=== PATIENT | female | born 1995 | race Hispanic/Latino ===

== ENCOUNTER 2018-12-30 13:18 | Emergency (ER) | payer OTHER ==
[~2018-12-30] VITALS: Ht 157.5 cm; Wt 85.5 kg
[2018-12-30] MEDS ORDERED: Xyzal (13:26)
[2018-12-30] MEDS ORDERED: PRENTAB55 PO (13:26)
[2018-12-30 13:56] LABS: BASO % 0.2 % (0.0-1.0); EOS # 0.6 10^3/uL (0.0-0.50); EOS % 6.3 % (0.0-3.0); HEMATOCRIT 37.8 % (36.0-47.0); HEMOGLOBIN 12.7 g/dl (12.0-15.5); LYMPH # 2.3 10^3/uL (1.5-6.5); MEAN CORPUSCULAR HEMOGLOBIN 29.5 pg (27.0-33.0); MEAN CORPUSCULAR HGB CONC 33.6 g/dl (32.0-36.5); MEAN CORPUSCULAR VOLUME 87.9 fl (80.0-96.0); MONO # 0.6 10^3/uL (0.0-0.8); MONO % 6.1 % (0.0-5.0); NEUTROPHILS # 6.4 10^3/uL (1.8-7.7); NEUTROPHILS % 64.2 % (36.0-66.0); PLATELET COUNT, AUTOMATED 189 10^3/uL (150-450); WHITE BLOOD COUNT 9.9 10^3/uL (4.0-10.0)
--- NOTE | 2018-12-30 15:42 | REP ---
First trimester obstetric ultrasound for vaginal bleeding, stat request: The studies performed transabdominal, endovaginal and Doppler ultrasound assessment. There is an intrauterine gestational sac with a pole. The heart rate is 162 beats per minute. The pole crown-rump length is 4.3 cm. This corresponds to 11 weeks 1 day gestational age. The ALFRED is 07/20/2019. Gestational by LMP is 11 weeks 4 days/ALFRED 07/20/2019. There is a subchorionic hematoma in the lower uterine segment measuring 5.2 x 1.6 x 5.1 cm. The the there is a right ovarian cyst measuring up to 2.29 cm, likely a corpus luteum. Left ovary is unremarkable. There is vascular flow in both ovaries with the Doppler resistive index of the parenchymal arteries of the right ovary 0.47 and left ovary 0.53. There is no free fluid in the pelvis. Impression: 55-zust-9-day viable intrauterine gestation. Subchorionic hematoma as described. Right ovarian 2.2 cm cyst, likely a corpus luteum. Electronically Signed by Kristian Justin MD 12/30/2018 03:33 P
[2018-12-30 16:35] VITALS: BP 102/52
== END 2018-12-30 16:39 | disposition home or self-care (01) ==
LOC: M ED 13:18
DX: O20.8 Other hemorrhage in early pregnancy (principal); O99.511 Diseases of the respiratory system complicating pregnancy, first trimester; J45.909 Unspecified asthma, uncomplicated; Z87.891 Personal history of nicotine dependence; Z3A.11 11 weeks gestation of pregnancy

== ENCOUNTER → 2019-05-17 | Outpatient (CLI) | payer OTHER ==
[~2019-05-17] MED LIST: ACET-683 PO; IBUP80TA PO; OXYC1TAB23 PO; PRENTAB55 PO; Xyzal
[2019-05-20 11:46] LABS: HEPATITIS C VIRUS ABY INDEX 0.1 INDEX (<0.8); HIV 1&2 SCREEN CENTAUR NEGATIVE (NEGATIVE)
== END ==
LOC: M SMT 14:36
PROVIDERS: ATTEND Advanced Practice Midwife
DX: Z34.83 Encounter for supervision of other normal pregnancy, third trimester (principal); Z3A.00 Weeks of gestation of pregnancy not specified

== ENCOUNTER → 2019-05-23 | Outpatient (CLI) | payer OTHER ==
[~2019-05-23] MED LIST changes: -ACET-683 PO; -IBUP80TA PO; -OXYC1TAB23 PO
--- NOTE | 2019-05-23 10:27 | REP ---
Obstetric ultrasound for anatomy: There is a single intrauterine gestation in a vertex presentation. There is movement and cardiac activity. The heart rate is 100 35 beats per minute. The placenta is posterior. There is no previa or abruptio. The placenta is grade 1. The amniotic fluid volume subjectively is normal. The amniotic fluid index is 16.4 versus 8.7 - 24.1). The cervix measures 3.5 cm. Gestational age by today's ultrasound is 31 weeks 3 days/ALFRED 07/22/2019. Gestational age by the first ultrasound is 31 weeks 5 days/ALFRED 07/20/2019. Gestational age by LMP is 31 weeks 5 days/ALFRED 07/20/2019. weight is 1783 grams/3 pounds, 14 ounces. This is the 39th percentile for 31 weeks 5 days. The following anatomic structures are identified and are unremarkable: Cranium, choroid plexus, cavum septum pellucidum, cerebellum, lungs, four-chamber heart, cardiac left ventricular outflow tract, diaphragm, stomach, cord insertion, three-vessel cord, kidneys, bladder and spine. Suboptimally demonstrated because of position and gestational age of the facial features, right ventricular outflow tract and upper lower extremities. Umbilical artery Doppler assessment: S/D ratio the the 2.82 (2.30-3.30) Resistive Index 0.65 (0.59-0.75 Diastolic Velocity 17.5 (>10 cm/sec) Electronically Signed by Kristian Justin MD 05/23/2019 10:18 A
== END ==
LOC: M RAD 08:15
PROVIDERS: ATTEND Advanced Practice Midwife
DX: Z34.80 Encounter for supervision of other normal pregnancy, unspecified trimester (principal)

== ENCOUNTER → 2019-06-06 | Outpatient (CLI) | payer OTHER ==
--- NOTE | 2019-06-06 11:20 | REP ---
Clinical: Anatomical evaluation. Comparison: 05/23/2019 . Findings: Examination demonstrates a single live intrauterine in cephalic presentation. motion is identified by technologist. Placenta is noted posterior and grade II without evidence for placenta previa or abruption. Amniotic fluid volume is normal. Cervix measures 4.2 cm in length and appears closed. Nuchal cord cannot be excluded. Gestational age by LMP 33 weeks 5 days with ALFRED 07/20/2019 . Gestational age by current measurements 33 weeks 5-day with ALFRED 07/20/2019 . FHR equals 128 beats per minute. Estimated weight 2278 grams ( 47th percentile). Amniotic fluid index: 17.5 cm (8.2-24.7) Anatomical assessment demonstrates normal structures including cranium, choroid plexus, cavum, cerebellum/posterior fossa, lungs, four-chamber heart/ventricular outflow tracts, diaphragm, stomach, cord insertion/three-vessel cord, kidneys/bladder, and spine. Limited evaluation of the facial features and extremities again noted. Impression: 1. Single live intrauterine in cephalic presentation demonstrating appropriate interval growth. 2. Nuchal cord cannot be excluded. 3. Continued limited evaluation of the facial features and extremities. Remainder of the anatomical assessment is complete and normal. Electronically Signed by Khanh Vasques MD 06/06/2019 11:12 A
== END ==
LOC: M RAD 10:01
PROVIDERS: ATTEND Advanced Practice Midwife
DX: Z34.03 Encounter for supervision of normal first pregnancy, third trimester (principal)

== ENCOUNTER → 2019-06-11 | Outpatient (REF) | payer OTHER | LOC: M LAB REF 12:41 | PROVIDERS: ATTEND Advanced Practice Midwife | DX: Z34.03 Encounter for supervision of normal first pregnancy, third trimester (principal) ==

== ENCOUNTER 2019-06-15 09:23 | Outpatient (CLI) | payer OTHER ==
[~2019-06-15] VITALS: Ht 157.5 cm; Wt 93.6 kg
[2019-06-15 09:53] VITALS: BP 118/63
== END 2019-06-15 11:55 | disposition home or self-care (01) ==
LOC: M LDO 09:23
PROVIDERS: ATTEND Obstetrics & Gynecology
DX: O26.893 Other specified pregnancy related conditions, third trimester (principal); R10.30 Lower abdominal pain, unspecified; Z3A.36 36 weeks gestation of pregnancy
CPT/HCPCS: G0378; G0463

== ENCOUNTER → 2019-06-28 | Outpatient (REF) | payer OTHER | LOC: M LAB REF 16:57 | PROVIDERS: ATTEND Advanced Practice Midwife | DX: Z34.83 Encounter for supervision of other normal pregnancy, third trimester (principal) ==

== ENCOUNTER → 2019-07-03 | Outpatient (CLI) | payer OTHER | LOC: M SMT 10:50 | PROVIDERS: ATTEND Advanced Practice Midwife | DX: Z34.83 Encounter for supervision of other normal pregnancy, third trimester (principal); Z3A.00 Weeks of gestation of pregnancy not specified ==

== ENCOUNTER 2019-07-24 18:10 | Inpatient (IN) | payer OTHER ==
[~2019-07-24] VITALS: Ht 157.5 cm; Wt 95.9 kg
[2019-07-24 18:38] VITALS: BP 123/74
--- NOTE | 2019-07-24 19:03 | HPE ---
DATE OF ADMISSION: 07/24/2019 Anitha is 23-year-old 1, para 0 at 48-4/7 weeks gestation, estimated date of confinement (EDC) of 07/20/2019 based on first-trimester ultrasound. She presents to labor and delivery today for induction of labor due to post-term . She does report an occasional contraction. Denies vaginal bleeding and leakage of fluid. The fetus has been active. Her care was initiated in [place], [place] in the first trimester with a transfer of care to [facility] at 28 weeks gestation. Her course complicated by anti-M antibody, which causes rarely hemolytic anemia of the fetus, and the antibody was not detected at 37 degrees centigrade and is not considered clinically significant; therefore, no titer was indicated. She does reports that she has a long-term history of getting severe hives with stress and an increased heat. OBSTETRICAL HISTORY: Primigravida. OBSTETRIC LABORATORIES: A positive, antibody positive for anti-M, ASCUS Pap, HPV positive, varicella immune, rubella nonimmune, VDRL nonreactive. Hepatitis B surface antigen negative, HIV negative, hepatitis C antibody nonreactive. Gonorrhea and chlamydia negative. Cystic fibrosis carrier screening negative. Quad screen negative. Gestational diabetic screening normal at 125, and her GBS is negative. PAST MEDICAL HISTORY: Asthma. SURGERIES: Tonsillectomy. FAMILY HISTORY: Diabetes, hypertension, heart disease, and asthma. SOCIAL HISTORY: The patient is . Her is at bedside and supportive. She is a nonsmoker. Denies alcohol and drug use. No history of sexually transmitted infections and denies history of abuse, physical, sexual, and emotional. ALLERGIES: No known drug allergies. CURRENT MEDICATIONS: vitamins and Zyrtec. OBJECTIVE: Temperature 96, pulse 103, blood pressure (BP) is 123/74. heart rate is 135 with moderate variability, positive accelerations. No decelerations. Occasional contraction noted. Sterile vaginal exam: 2-3 cm dilated, 75% effaced, -3 station, posterior, soft. No show with the exam. Abdomen is gravid, cephalic presentation. Estimated weight 8 pounds. ASSESSMENT: Intrauterine at 40-4/7 weeks. heart rate category 1. PLAN: Admit the patient to labor and delivery. Routine labs. Out of bed ad marisa. Regular diet at this time. Saline lock. Misoprostol 50 mcg by mouth every 4 hours for cervical ripening. Likely will start intravenous (IV) Pitocin later for labor induction. The patient does request an epidural when she is uncomfortable in her labor. I did review risks, benefits, and alternatives. The patient and her 's questions have been answered. She has been verbally consented for emergency surgery and blood products if necessary. I do anticipate cervical ripening.
[2019-07-24 19:07] LABS: HEMOGLOBIN 13.1 g/dl (12.0-15.5); MEAN CORPUSCULAR HEMOGLOBIN 29.5 pg (27.0-33.0); MEAN CORPUSCULAR HGB CONC 33.6 g/dl (32.0-36.5); MEAN CORPUSCULAR VOLUME 87.8 fl (80.0-96.0); PLATELET COUNT, AUTOMATED 169 10^3/uL (150-450); RED BLOOD COUNT 4.44 10^6/uL (4.00-5.40); WHITE BLOOD COUNT 12.4 10^3/uL (4.0-10.0)
[2019-07-24 19:34] VITALS: BP 118/63
[2019-07-24] MEDS: miSOPROStol 50 MCG 1/2 TAB (S0191) PO SCH (19:36)
[2019-07-24 22:35] VITALS: BP 134/80
[2019-07-25] VITALS (50 sets, daily range): BP systolic 81–148; BP diastolic 40–110
[2019-07-25] MEDS: miSOPROStol 50 MCG 1/2 TAB (S0191) PO SCH ×2 (00:11→04:18)
[2019-07-25] MEDS ORDERED: OXYTOCIN 30 UNITS IN 0.9% NaCl 500ML IV BAG (J2590) As Ordered ONE (08:19)
[2019-07-25] MEDS: LR 1,000 ML IV SCH ×3 (08:43→17:56)
[2019-07-25] MEDS ORDERED: OXYTOCIN DRIP 30 UNITS in APPROPRIATE DILUENT 1 EA IV SCH ×2 (08:45→23:38)
[2019-07-25] MEDS ORDERED: FENTANYL 2MCG/ML ROPIVACAINE 0.2% IN 0.9% NACL 100ML IVBAG As Ordered ONE (13:46)
[2019-07-25] MEDS ORDERED: EPIDURAL COMMENT XX SCH (15:00)
[2019-07-25] MEDS ORDERED: LACTATED RINGER'S 1000 ML IV PRN (15:00)
[2019-07-25] MEDS ORDERED: diphenhydrAMINE INJ 50MG/ML VIAL (J1200) IV PRN ×2 (15:00→23:30)
[2019-07-25] MEDS ORDERED: ePHEDrine SULFATE 25 MG/5 ML(5MG/ML) SYRINGE IV PRN (15:00)
[2019-07-25] MEDS ORDERED: REFRIGERATOR IV KEYS XX PRN (15:00)
[2019-07-25] MEDS ORDERED: ONDANSETRON 4MG/2ML VIAL (J2405) IV PRN ×3 (15:00→23:45)
[2019-07-25] MEDS ORDERED: NALOXONE INJ 0.4 MG/1 ML VIAL (J2310) IV PRN ×3 (15:00→23:30)
[2019-07-25] MEDS ORDERED: FENTANYL/ROPIVACAINE/NACL BAG 100 ML EPIDURAL SCH (15:00)
[2019-07-25] MEDS ORDERED: EPIDURAL/PCA KEYS XX PRN (15:00)
[2019-07-25] MEDS ORDERED: AZITHROMYCIN INJ 500 MG, VIAL MATE ADAPTER 1 EACH in D5W 250 ML IV ONE (22:15)
[2019-07-25] MEDS ORDERED: BICITRA 30ML SOLN UDC PO ONE (22:15)
[2019-07-25] MEDS ORDERED: OXYTOCIN INJ 10 UNITS/ML VIAL (J2590) As Ordered ONE (22:16)
[2019-07-25] MEDS ORDERED: LIDOCAINE 2% W/EPIN INJ 20ML **PRES FREE As Ordered ONE (22:16)
[2019-07-25] MEDS ORDERED: ePHEDrine SULFATE 25 MG/5 ML(5MG/ML) SYRINGE As Ordered ONE (22:40)
[2019-07-25] MEDS ORDERED: METOCLOPRAMIDE INJ 10MG/2ML VIAL (J2765) As Ordered ONE (22:44)
[2019-07-25] MEDS ORDERED: ONDANSETRON 4MG/2ML VIAL (J2405) As Ordered ONE (22:58)
[2019-07-25] MEDS ORDERED: KETOROLAC 60 MG/2 ML VIAL (J1885) As Ordered ONE (22:58)
[2019-07-25] MEDS ORDERED: MORPHINE PRES-FREE INJ 10 MG/10 ML VIAL (J2274) As Ordered ONE (22:59)
[2019-07-25] MEDS ORDERED: PHENYLephrine HCL 500 MCG/5 ML (100MCG/ML) SYRINGE (J2370) As Ordered ONE (23:05)
[2019-07-25 23:07] LABS: CORD GAS ABE A -1.2; CORD GAS HCO3 A 25.5 MEQ/L; CORD GAS O2 SAT A 38.4 %; CORD GAS PH A 7.325 UNITS; CORD GAS PO2 A 20.9 mmHg
[2019-07-25 23:10] LABS: CORD GAS ABE V -0.4; CORD GAS HCO3 V 25.1 MEQ/L; CORD GAS O2 SAT V 64.9 %; CORD GAS PCO2 V 44.6 mmHg; CORD GAS PH V 7.369 UNITS; CORD GAS SBC V 23.3 MEQ/L; CORD GAS TCO2 V 26.5 MEQ/L
[2019-07-25] MEDS ORDERED: METOCLOPRAMIDE INJ 10MG/2ML VIAL (J2765) IV PRN (23:30)
[2019-07-25] MEDS ORDERED: NALBUPHINE HCL 10 MG/ML AMP (J2300) IV PRN (23:30)
[2019-07-25] MEDS ORDERED: MEASLES,MUMPS,RUBELLA VACCINE INJ (MMR-II) (90707) SC SCH (23:45)
[2019-07-25] MEDS ORDERED: ACETAMINOPHEN 500 MG TAB PO PRN (23:45)
[2019-07-25] MEDS ORDERED: ACETAMINOPHEN TAB 650MG DOSE (2X325MG) PO PRN (23:45)
[2019-07-25] MEDS ORDERED: RHOGAM 300 MCG (1500 IU) INJ (J2790) IM SCH (23:45)
[2019-07-25] MEDS ORDERED: PERCOCET 5MG/325MG TAB PO PRN ×2 (23:45)
[2019-07-25] MEDS ORDERED: MOM 30ML SUSPENSION UDC PO PRN (23:45)
[2019-07-26] VITALS (8 sets, daily range): BP systolic 101–120; BP diastolic 55–67
[2019-07-26] MEDS ORDERED: fentaNYL 100 MCG/2 ML INJECTION (J3010) IV PRN
[2019-07-26] MEDS ORDERED: MEPERIDINE INJ 25 MG/ML VIAL (J2175) IV PRN
[2019-07-26] MEDS ORDERED: HYDROMORPHONE HCL 0.5 MG/ 0.5 ML SYRINGE (J1170 PER 1) IV PRN
[2019-07-26] MEDS ORDERED: PERCOCET 5MG/325MG TAB PO PRN
[2019-07-26] MEDS ORDERED: ONDANSETRON 4MG/2ML VIAL (J2405) IV PRN
[2019-07-26] MEDS ORDERED: diphenhydrAMINE INJ 50MG/ML VIAL (J1200) IV PRN
[2019-07-26] MEDS ORDERED: NALBUPHINE HCL 10 MG/ML AMP (J2300) IV PRN
[2019-07-26] MEDS ORDERED: fentaNYL 100 MCG/2 ML INJECTION (J3010) As Ordered ONE (00:40)
[2019-07-26] MEDS: LR 1,000 ML IV SCH ×4 (02:39→15:38)
[2019-07-26] MEDS: KETOROLAC 30 MG/ML VIAL (J1885) IV SCH ×3 (05:36→17:29)
[2019-07-26 06:50] LABS: HEMATOCRIT 31.6 % (36.0-47.0); MEAN CORPUSCULAR HEMOGLOBIN 30.1 pg (27.0-33.0); MEAN CORPUSCULAR HGB CONC 33.9 g/dl (32.0-36.5); PLATELET COUNT, AUTOMATED 126 10^3/uL (150-450); RED BLOOD COUNT 3.55 10^6/uL (4.00-5.40); WHITE BLOOD COUNT 16.2 10^3/uL (4.0-10.0)
[2019-07-26 06:55] LABS: HEMOGLOBIN 10.7 g/dl (12.0-15.5)
--- NOTE | 2019-07-26 08:20 | RO ---
DATE OF PROCEDURE: 07/25/2019 PREOPERATIVE DIAGNOSIS: Arrest of dilation. POSTOPERATIVE DIAGNOSES: Arrest of dilation. PROCEDURE PERFORMED: Primary lower transverse section. SURGEON: Zandra Nava MD OPHTHALMIC AIDE: Rosie Carolina DO ANESTHESIA: Epidural. ESTIMATED BLOOD LOSS : 550 mL. IV FLUIDS: 1100 mL of lactated Ringer's solution. URINE OUTPUT: 200 mL. PREOPERATIVE ANTIBIOTICS: 2 grams of Ancef, 500 mg of azithromycin. SPECIMENS: Cord gases, which were 7.3, 27.36, base excesses -1.2. OPERATIVE FINDINGS: Live born male , scores 9 and 9, weight was 7 pounds 14 ounces, 3580 grams. DESCRIPTION OF OPERATION: After informed consent was obtained and written consent was reviewed, the patient brought to the operating room where she was prepped and draped in a normal sterile fashion. She had a Gonzalez catheter previously placed and it was set to gravity. A time out in the operating room was then performed identifying the patient, procedure to be performed, as well as drug allergies. Anesthesia was tested and deemed to be adequate. A Pfannenstiel skin incision was then made and this was carried down to the underlying rectus fascia. Fascia was scored and this was extended bilaterally. The fascia was then dissected off the lying rectus muscles both superiorly and inferiorly. The rectus muscles were in the midline. Peritoneum was then entered. The vesicouterine peritoneum was then tented and excised to create a bladder flap. Bladder blade was then placed retracting back the bladder. Curvilinear incision was then made in the lower uterine segment. This incision was extended bilaterally. The head was then brought to the level of the incision atraumatically and delivered along with shoulders and corpus. Cord was clamped times two and was cut and the infant was taken over to the warmer with good cry. Placenta was then delivered grossly intact after obtaining cord gases. The uterus was then exteriorized, cleared of all clots and debris. Uterine incision was then closed in two-layers using 0 Vicryl, first in a running locking fashion followed by a second layer for imbrication in a running nonlocking fashion. The abdomen was then suctioned. The uterus was returned to the patient's abdomen, was reinspected and noted to be hemostatic. The anterior peritoneum was then reapproximated with 3-0 Vicryl. Rectus muscles were reapproximated with 3-0 Vicryl. The fascia was then closed with 0 Vicryl in a running nonlocking fashion. Subcutaneous tissue was then irrigated and suctioned. Subcutaneous tissues were reapproximated with 3-0 Vicryl. Several subdermal stitches were placed 3-0 Vicryl and the skin was closed with 4-0 Monocryl in a subcuticular fashion. Incision was then cleaned and dried and was dressed. The patient was then taken to recovery in stable condition. Counts were correct. Dr. Carolina, my surgical instrument mechanic, played an essential role to the surgery. She assisted with tissue identification, retraction delivery of the , as well as wound closure. The couple has decided to name their son Maynor Peralta.
[2019-07-26 09:12] LABS: HEPATITIS C VIRUS ABY INDEX 0.1 INDEX (<0.8); HIV 1&2 SCREEN CENTAUR NEGATIVE (NEGATIVE)
[2019-07-26] MEDS: PRENATAL VITAMINS CHEWABLE TABLET PO SCH (09:40)
[2019-07-26] MEDS: DOCUSATE SODIUM 100 MG CAP PO SCH ×2 (09:40→21:13)
--- NOTE | 2019-07-26 11:27 | IPNPDOC ---
Text Note Date of Service The patient was seen on 07/26/19. NOTE Postop Day 1 S/p pLTCS secondary to arrest of dilation; uncomplicated S: pain well controlled, lochia and bleeding decreasing, voiding spontaneously, ambulating without assistance, tolerating regular diet. Breast feeding. O: vitals stable Heart: RRR, no murmurs Lungs: CTA BL Abd: Fundus firm at U, dressing dry and intact Ext: no edema, nontender, negative Akilah's sign bilaterally A/P: 23 yo G1 now P1. Postop day 1 s/p pLTCS. Hemodynamically stable, afebrile, good pain control. Recovering well. -Routine postoperative care and advancement. -Anticipate discharge tomorrow VS,Serafinbone, I+O VS, Fishbone, I+O Laboratory Tests 07/26/19 06:29 Red Blood Count 3.55 L, Mean Corpuscular Volume 89.0, Mean Corpuscular Hemoglobi n 30.1, Mean Corpuscular Hemoglobin Concent 33.9, Red Cell Distribution Width 13.3 Vital Signs Date Time Temp Pulse Resp B/P (MAP) Pulse Ox O2 Delivery O2 Flow Rate FiO2 07/26/19 09:59 98.3 72 16 113/57 (70) 93 I&O- Last 24 Hours up to 6 AM 07/26/19 06:00 Intake Total 4240 ml Output Total 5500 ml Balance -1260 ml GME ATTESTATION GME ATTESTATION My faculty preceptor for this patient encounter was physically present during the encounter and was fully available. All aspects of the patient interview, examination, medical decision making process, and medical care plan development were reviewed and approved by the faculty preceptor. The faculty preceptor is aware and concurs with the plan as stated in the body of this note and will attest to such by his/her cosignature. PRABHU AUGUSTIN DO Jul 26, 2019 11:27
[2019-07-27] MEDS: IBUPROFEN 800 MG TAB PO SCH ×2 (01:45→09:07)
[2019-07-27 02:00] VITALS: BP 109/61
[2019-07-27 06:00] VITALS: BP 125/67
--- NOTE | 2019-07-27 06:25 | IPNPDOC ---
Text Note Date of Service The patient was seen on 07/27/19. NOTE Postop Day 2 S/p pLTCS secondary to arrest of dilation; uncomplicated S: pain well controlled, lochia and bleeding decreasing, voiding spontaneously, ambulating without assistance, tolerating regular diet. Breast feeding. O: vitals stable Heart: RRR, no murmurs Lungs: CTA BL Abd: Fundus firm at U-1, dressing dry and intact Ext: no edema, nontender, negative Akilah's sign bilaterally A/P: 23 yo G1 now P1. Postop day 2 s/p pLTCS. Hemodynamically stable, afebrile, good pain control. Recovering well. -Routine postoperative care and advancement. -Anticipate discharge tomorrow VS,Gian, I+O VS, Laurae, I+O Laboratory Tests 07/26/19 06:29 Red Blood Count 3.55 L, Mean Corpuscular Volume 89.0, Mean Corpuscular Hemoglo bin 30.1, Mean Corpuscular Hemoglobin Concent 33.9, Red Cell Distribution Width 13.3 Vital Signs Date Time Temp Pulse Resp B/P (MAP) Pulse Ox O2 Delivery O2 Flow Rate FiO2 07/27/19 06:00 98.1 85 18 125/67 (86) 07/26/19 09:59 93 I&O- Last 24 Hours up to 6 AM 07/27/19 06:00 Intake Total 2920 ml Output Total 1600 ml Balance 1320 ml GME ATTESTATION GME ATTESTATION My faculty preceptor for this patient encounter was physically present during the encounter and was fully available. All aspects of the patient interview, examination, medical decision making process, and medical care plan development were reviewed and approved by the faculty preceptor. The faculty preceptor is aware and concurs with the plan as stated in the body of this note and will attest to such by his/her cosignature. PRABHU AUGUSTIN DO Jul 27, 2019 06:25
[2019-07-27] MEDS: PRENATAL VITAMINS CHEWABLE TABLET PO SCH (09:07)
[2019-07-27] MEDS: DOCUSATE SODIUM 100 MG CAP PO SCH (09:07)
[2019-07-27] MEDS ORDERED: IBUP80TA PO (13:22)
[2019-07-27] MEDS ORDERED: ACET-683 PO (13:22)
== END 2019-07-27 16:40 | disposition home or self-care (01) | DRG 773 ==
LOC: M LDI 18:10 → M OBS 07-26 01:41
PROVIDERS: ADMIT Advanced Practice Midwife; ATTEND Obstetrics & Gynecology
PROC: 3E033VJ Introduction of Other Hormone into Peripheral Vein, Percutaneous Approach (ICD-10-PCS; 2019-07-24)
PROC: 10D00Z1 Extraction of Products of Conception, Low, Open Approach (ICD-10-PCS; principal; 2019-07-25 22:35)
DX: O48.0 Post-term pregnancy (principal); Z3A.40 40 weeks gestation of pregnancy; O99.52 Diseases of the respiratory system complicating childbirth; J45.909 Unspecified asthma, uncomplicated; O62.0 Primary inadequate contractions; Z37.0 Single live birth

== ENCOUNTER 2019-07-31 18:59 | Emergency (ER) | payer OTHER ==
[~2019-07-31] VITALS: Ht 157.5 cm; Wt 93.0 kg
[~2019-07-31 18:59] MED LIST changes: +ACET-683 PO; +IBUP80TA PO; +OXYC1TAB23 PO
[2019-07-31] MEDS ORDERED: ISOVUE-370 76% 100ML VIAL (Q9967) As Ordered ONE (21:14)
--- NOTE | 2019-07-31 22:41 | REPVR ---
PROCEDURE INFORMATION: Exam: CT Abdomen and Pelvis With Contrast Exam date and time: 07/31/2019 9:09 PM Clinical history: 23 years old, female; Abdominal pain; Localized; Lower; Prior surgery; Surgery date: 1-6 months; Surgery type: ; Additional info: R/O post op hemorrhage TECHNIQUE: Imaging protocol: Computed tomography of the abdomen and pelvis with intravenous contrast. Radiation optimization: All CT scans at this facility use at least one of these dose optimization techniques: automated exposure control; mA and/or kV adjustment per patient size (includes targeted exams where dose is matched to clinical indication); or iterative reconstruction. Contrast material: ISO; Contrast volume: 100 ml; Contrast route: AC; COMPARISON: US OBS FOLL UP OR REPEAT EACH GES 06/06/2019 10:14 AM FINDINGS: Lungs: There is bibasilar compressive atelectasis. Liver: Normal. No mass. Gallbladder and bile ducts: The gallbladder is incompletely distended. This is most likely related to incomplete fasting. Clinical correlation to exclude gallbladder pathology suggested. Pancreas: Normal. No ductal dilation. Spleen: There is mild splenomegaly with a maximum span of 14.5 centimeters. No focal abnormalities demonstrated. Adrenals: Normal. No mass. Kidneys and ureters: Normal. No hydronephrosis. Stomach and bowel: Unremarkable. No obstruction. No mucosal thickening. Appendix: No evidence of appendicitis. Intraperitoneal space: Unremarkable. No free air. No significant fluid collection. Vasculature: Unremarkable. No abdominal aortic aneurysm. Lymph nodes: Unremarkable. No enlarged lymph nodes. Bladder: Unremarkable as visualized. Reproductive: Enlarged uterus consistent with recent status. Inflammatory changes in the lower anterior normal wall consistent with recent section. Bones/joints: Unremarkable. No acute fracture. Soft tissues: Unremarkable. IMPRESSION: 1. Enlarged uterus consistent with recent status. 2. Inflammatory changes in the lower anterior normal wall consistent with recent section. 3. The gallbladder is incompletely distended. This is most likely related to incomplete fasting. Clinical correlation to exclude gallbladder pathology suggested. 4. There is mild splenomegaly. No focal abnormalities demonstrated. Electronically signed by: Hitesh Haywood On 07/31/2019 22:40:45 PM
[2019-07-31] MEDS ORDERED: KETOROLAC 30 MG/ML VIAL (J1885) IV ONE (22:45)
[2019-07-31] MEDS ORDERED: POTASSIUM CHLORIDE 10 MEQ SR TABLET PO ONE (23:00)
[2019-07-31 23:05] VITALS: BP 156/82
== END 2019-07-31 23:38 | disposition home or self-care (01) ==
LOC: M ED 18:59
DX: S39.011A Strain of muscle, fascia and tendon of abdomen, initial encounter (principal); X58.XXXA Exposure to other specified factors, initial encounter; Y92.9 Unspecified place or not applicable; Y93.89 Activity, other specified; Y99.9 Unspecified external cause status; Z79.3 Long term (current) use of hormonal contraceptives; Z79.899 Other long term (current) drug therapy
CPT/HCPCS: 74177; 80047; 96374; 99284; J1885; Q9967

== ENCOUNTER → 2019-08-08 | Outpatient (REF) | payer OTHER | LOC: M LAB REF 16:44 | PROVIDERS: ATTEND Obstetrics & Gynecology | DX: R30.0 Dysuria (principal) ==